=== PATIENT | male | born 1980 | race Caucasian/White ===

== ENCOUNTER 2019-12-01 02:05 | Inpatient (IN) | payer OTHER ==
[2019-12-01 02:20] LABS: Glucose,Whole Blood 260 mg/dL (75-99)
[2019-12-01] MEDS ORDERED: THIAMINE 100 MG/ML 2 ML VIAL IVP STA (02:29)
[2019-12-01 02:53] LABS: Basophils # (A) 0.1 k/uL (0-0.2); Basophils % (A) 1 %; Eosinophils # (A) 0.1 k/uL (0-0.7); Eosinophils % (A) 1 %; HCT 49.7 % (39.0-53.0); HGB 16.2 gm/dL (13.0-17.5); Lymphocytes # (A) 3.8 k/uL (1.0-4.8); Lymphocytes % (A) 29 %; MCHC 32.6 g/dL (31.0-37.0); Monocytes # (A) 0.7 k/uL (0-1.0); Monocytes % (A) 5 %; Neutrophils % (A) 62 %; Platelet Count 261 k/uL (150-450); RDW 11.8 % (11.5-15.5); WBC 12.8 k/uL (3.8-10.6)
[2019-12-01 02:57] LABS: Appearance,Urine Clear (Clear); Bilirubin,Urine Negative (Negative); Blood,Urine Negative (Negative); Color,Urine Colorless; Glucose,Urine (UA) Negative (Negative); Ketones,Urine Negative (Negative); Leukocyte Esterase,Urine Negative (Negative); Nitrite,Urine Negative (Negative); Protein,Urine Negative (Negative); Specific Gravity,Urine 1.005 (1.001-1.035); Urobilinogen,Urine <2.0 mg/dL (<2.0)
[2019-12-01 03:02] LABS: INR 0.9 (<1.2); Partial Thromboplastin Time 23.9 sec (22.0-30.0); Prothrombin Time 9.7 sec (9.0-12.0)
[2019-12-01 03:05] LABS: ALT 28 U/L (4-49); AST 36 U/L (17-59); African American GFR (CKD) >90 (>60 ml/min/1.73 sqM); Albumin 4.7 g/dL (3.5-5.0); Alkaline Phosphatase 97 U/L (38-126); Anion Gap 19 mmol/L; Blood Urea Nitrogen 10 mg/dL (9-20); Calcium 9.2 mg/dL (8.4-10.2); Carbon Dioxide 20 mmol/L (22-30); Chloride 103 mmol/L (98-107); Glucose 284 mg/dL (74-99); Non-African American GFR(CKD) >90 (>60 ml/min/1.73 sqM); Potassium 3.1 mmol/L (3.5-5.1); Sodium 142 mmol/L (137-145); Total Bilirubin 0.7 mg/dL (0.2-1.3); Total Protein 7.3 g/dL (6.3-8.2)
[2019-12-01 03:10] LABS: Amphetamine Screen,Urine Not Detected (NotDetected); Barbiturate Screen,Urine Not Detected (NotDetected); Benzodiazepines Screen,Urine Not Detected (NotDetected); Cocaine Screen,Urine Not Detected (NotDetected); Methadone Screen, Urine Not Detected (NotDetected); Opiate Screen,Urine Not Detected (NotDetected); Oxycodone Screen, Urine Not Detected (NotDetected); Phencyclidine Screen,Urine Not Detected (NotDetected); Tricyclic Antidepressant,Urine Not Detected (NotDetected); Urn Cannabinoid Scrn Not Detected (NotDetected)
[2019-12-01 03:15] LABS: Alcohol 413 mg/dL
--- NOTE | 2019-12-01 03:16 | ED ---
General Adult HPI - General Chief complaint: Alcohol Stated complaint: ETOH Time Seen by Provider: 12/01/19 02:16 Source: EMS Mode of arrival: EMS Limitations: altered mental status - History of Present Illness Initial comments: This patient is a 38-year-old man who is brought by his mother to be evaluated for altered mental state. The patient reportedly is a heavy drinker, and has had similar presentation before. The patient's mother states that she had gone down to a boat for the motorbike celebrations. She had seen him caring pint of hard liquor. She suspects she drank more than that, and she received a call tonight that friends were not able to arouse him. She states that she went there and they helped to load them into the vehicle and she brought him directly here. No one observed any trauma. The patient is not able to give any history due to altered mental status. -: minutes(s) Associated Symptoms: nausea/vomiting Treatments Prior to Arrival: none - Related Data Allergies Allergy/AdvReac Type Severity Reaction Status Date / Time Unable to Assess Allergy Verified 12/01/19 02:19 Review of Systems ROS Statement: Those systems with pertinent positive or pertinent negative responses have been documented in the HPI. ROS Other: All systems not noted in ROS Statement are negative. Limitations: ROS unobtainable due to patients medical condition Past Medical History Additional Past Medical History / Comment(s): etoh History of Any Multi-Drug Resistant Organisms: None Reported Past Surgical History: No Surgical Hx Reported Past Psychological History: No Psychological Hx Reported Smoking Status: Current every day smoker Past Alcohol Use History: Daily Past Drug Use History: None Reported General Exam Limitations: no limitations General appearance: appears intoxicated Head exam: Present: atraumatic, normocephalic, normal inspection Eye exam: Present: normal appearance, PERRL. Absent: scleral icterus, conjunctival injection Neck exam: Present: normal inspection, full ROM. Absent: tenderness Respiratory exam: Present: normal lung sounds bilaterally. Absent: respiratory distress, wheezes, rales, rhonchi, stridor Cardiovascular Exam: Present: normal rhythm, tachycardia, normal heart sounds. Absent: systolic murmur, diastolic murmur, rubs, gallop GI/Abdominal exam: Present: soft. Absent: distended, tenderness, guarding, rebound, rigid, mass Extremities exam: Present: normal inspection, normal capillary refill. Absent: pedal edema, calf tenderness Back exam: Present: normal inspection Neurological exam: Present: altered, reflexes normal, other (Patient is GCS=9. (E=2, V=2, M=5)) Skin exam: Present: warm, dry, intact, normal color. Absent: rash Course Vital Signs 12/01/19 12/01/19 12/01/19 02:14 03:25 04:55 Temperature 97.4 F L Pulse Rate 104 H 109 H 101 H Respiratory 15 18 18 Rate Blood Pressure 139/88 124/74 122/75 O2 Sat by Pulse 98 95 Oximetry 12/01/19 12/01/19 05:00 06:29 Temperature 97.7 F Pulse Rate 100 102 H Respiratory 16 18 Rate Blood Pressure 127/79 145/78 O2 Sat by Pulse 98 100 Oximetry EKG Findings - EKG Results: EKG: interpreted by VILLA, sinus rhythm, normal axis, normal QRS EKG shows: tachycardia (Rate 105 bpm) - Blocks, [place], Hypertrophy, ST Abn: Repolarization changes or abnormalities: nonspecific abnormality, ST segment, and/or T wave Medical Decision Making - Lab Data Result diagrams: 12/01/19 02:31 12/01/19 02:31 Lab Results 12/01/19 12/01/19 12/01/19 Range/Units 02:18 02:31 02:31 WBC 12.8 H (3.8-10.6) k/uL RBC 5.40 (4.30-5.90) m/uL Hgb 16.2 (13.0-17.5) gm/dL Hct 49.7 (39.0-53.0) % MCV 92.0 (80.0-100.0) fL MCH 30.0 (25.0-35.0) pg MCHC 32.6 (31.0-37.0) g/dL RDW 11.8 (11.5-15.5) % Plt Count 261 (150-450) k/uL Neutrophils % 62 % Lymphocytes % 29 % Monocytes % 5 % Eosinophils % 1 % Basophils % 1 % Neutrophils # 8.0 H (1.3-7.7) k/uL Lymphocytes # 3.8 (1.0-4.8) k/uL Monocytes # 0.7 (0-1.0) k/uL Eosinophils # 0.1 (0-0.7) k/uL Basophils # 0.1 (0-0.2) k/uL PT 9.7 (9.0-12.0) sec INR 0.9 (<1.2) APTT 23.9 (22.0-30.0) sec Sodium (137-145) mmol/L Potassium (3.5-5.1) mmol/L Chloride (98-107) mmol/L Carbon Dioxide (22-30) mmol/L Anion Gap mmol/L BUN (9-20) mg/dL Creatinine (0.66-1.25) mg/dL Est GFR (CKD-EPI)AfAm (>60 ml/min/1.73 sqM) Est GFR (CKD-EPI)NonAf (>60 ml/min/1.73 sqM) Glucose (74-99) mg/dL POC Glucose (mg/dL) 260 H (75-99) mg/dL POC Glu Sap Functional Analyst ID [place] Calcium (8.4-10.2) mg/dL Total Bilirubin (0.2-1.3) mg/dL AST (17-59) U/L ALT (4-49) U/L Alkaline Phosphatase (38-126) U/L Troponin I (0.000-0.034) ng/mL Total Protein (6.3-8.2) g/dL Albumin (3.5-5.0) g/dL Urine Color Urine Appearance (Clear) Urine pH (5.0-8.0) Ur Specific [place] (1.001-1.035) Urine Protein (Negative) Urine Glucose (UA) (Negative) Urine Ketones (Negative) Urine Blood (Negative) Urine Nitrite (Negative) Urine Bilirubin (Negative) Urine Urobilinogen (<2.0) mg/dL Ur Leukocyte Esterase (Negative) Urine Opiates Screen (NotDetected) Ur Oxycodone Screen (NotDetected) Urine Methadone Screen (NotDetected) Ur Propoxyphene Screen (NotDetected) Ur Barbiturates Screen (NotDetected) U Tricyclic Antidepress (NotDetected) Ur Phencyclidine Scrn (NotDetected) Ur Amphetamines Screen (NotDetected) U Methamphetamines Scrn (NotDetected) U Benzodiazepines Scrn (NotDetected) Urine Cocaine Screen (NotDetected) U Marijuana (THC) Screen (NotDetected) Serum Alcohol mg/dL 12/01/19 12/01/19 12/01/19 Range/Units 02:31 02:31 02:31 WBC (3.8-10.6) k/uL RBC (4.30-5.90) m/uL Hgb (13.0-17.5) gm/dL Hct (39.0-53.0) % MCV (80.0-100.0) fL MCH (25.0-35.0) pg MCHC (31.0-37.0) g/dL RDW (11.5-15.5) % Plt Count (150-450) k/uL Neutrophils % % Lymphocytes % % Monocytes % % Eosinophils % % Basophils % % Neutrophils # (1.3-7.7) k/uL Lymphocytes # (1.0-4.8) k/uL Monocytes # (0-1.0) k/uL Eosinophils # (0-0.7) k/uL Basophils # (0-0.2) k/uL PT (9.0-12.0) sec INR (<1.2) APTT (22.0-30.0) sec Sodium 142 (137-145) mmol/L Potassium 3.1 L (3.5-5.1) mmol/L Chloride 103 (98-107) mmol/L Carbon Dioxide 20 L (22-30) mmol/L Anion Gap 19 mmol/L BUN 10 (9-20) mg/dL Creatinine 0.56 L (0.66-1.25) mg/dL Est GFR (CKD-EPI)AfAm >90 (>60 ml/min/1.73 sqM) Est GFR (CKD-EPI)NonAf >90 (>60 ml/min/1.73 sqM) Glucose 284 H (74-99) mg/dL POC Glucose (mg/dL) (75-99) mg/dL POC Glu Sap Functional Analyst ID Calcium 9.2 (8.4-10.2) mg/dL Total Bilirubin 0.7 (0.2-1.3) mg/dL AST 36 (17-59) U/L ALT 28 (4-49) U/L Alkaline Phosphatase 97 (38-126) U/L Troponin I <0.012 (0.000-0.034) ng/mL Total Protein 7.3 (6.3-8.2) g/dL Albumin 4.7 (3.5-5.0) g/dL Urine Color Colorless Urine Appearance Clear (Clear) Urine pH 6.0 (5.0-8.0) Ur Specific [place] 1.005 (1.001-1.035) Urine Protein Negative (Negative) Urine Glucose (UA) Negative (Negative) Urine Ketones Negative (Negative) Urine Blood Negative (Negative) Urine Nitrite Negative (Negative) Urine Bilirubin Negative (Negative) Urine Urobilinogen <2.0 (<2.0) mg/dL Ur Leukocyte Esterase Negative (Negative) Urine Opiates Screen Not Detected (NotDetected) Ur Oxycodone Screen Not Detected (NotDetected) Urine Methadone Screen Not Detected (NotDetected) Ur Propoxyphene Screen Not Detected (NotDetected) Ur Barbiturates Screen Not Detected (NotDetected) U Tricyclic Antidepress Not Detected (NotDetected) Ur Phencyclidine Scrn Not Detected (NotDetected) Ur Amphetamines Screen Not Detected (NotDetected) U Methamphetamines Scrn Not Detected (NotDetected) U Benzodiazepines Scrn Not Detected (NotDetected) Urine Cocaine Screen Not Detected (NotDetected) U Marijuana (THC) Screen Not Detected (NotDetected) Serum Alcohol 413 H* mg/dL Disposition Clinical Impression: Alcoholic intoxication, Alcohol withdrawal syndrome Disposition: ADMITTED IP TO THIS [facility] Condition: Fair Is patient prescribed a controlled substance at d/c from ED?: No Referrals: None,Stated [Primary Care Provider] - 1-2 days
--- NOTE | 2019-12-01 03:18 | XR ---
EXAMINATION TYPE: XR chest 1V portable DATE OF EXAM: 12/01/2019 COMPARISON: NONE HISTORY: Altered mental status. TECHNIQUE: FINDINGS: There is no heart failure nor confluent pneumonic infiltrate. Costophrenic angles are clear . Heart size is normal. There are chest leads. Bony thorax is intact. IMPRESSION: No active cardiopulmonary disease. Normal heart.
--- NOTE | 2019-12-01 03:18 | CT ---
EXAMINATION TYPE: CT brain wo con DATE OF EXAM: 12/01/2019 COMPARISON: None HISTORY: AMS CT DLP: 1205.40 mGycm Automated exposure control for dose reduction was used. Ventricles and sulci appear normal. There is no mass effect nor midline shift. There is no sign of in tracranial hemorrhage. The calvarium is intact. There is no evidence of cerebral edema. IMPRESSION: Negative unenhanced head CT scan.
[2019-12-01] MEDS ORDERED: NALOXONE 0.4 MG/ML 1 ML VIAL IV PRN (07:22)
[2019-12-01] MEDS ORDERED: LORazepam 2 MG/ML INJ IV PRN ×3 (07:24)
[2019-12-01 08:08] VITALS: RESP 18
[2019-12-01] MEDS ORDERED: SODIUM CHLORIDE 0.9% 1,000 ML IV SCH (09:00)
[2019-12-01] MEDS ORDERED: FOLIC ACID 1 MG TAB PO SCH (09:00)
--- NOTE | 2019-12-01 09:01 | P.HPIM ---
History of Present Illness H&P Date: 12/01/19 The patient is a 38-year-old male with a PMH of alcohol abuse and bipolar disorder who was brought into the ED by his mother for alcohol intoxication and decreased level of consciousness. The history provided by the mother at the bedside since the patient is intoxicated and lethargic. She notes that the patient has a long-standing history of EtOH abuse and normally drinks up to a pint of hard liquor a day along with multiple beers. She notes however that yesterday they were out with friends and he initially had his 1 pint and then returned to the bar a few hours later and had an additional 2 pints of whiskey and rum. The patient subsequently became very intoxicated and was carried into his mother's car by some friends. En-route to her house, she felt that he was minimally responsive at which time she brought him into the emergency room. She reports that he often "passes out" after a night of drinking, though doesn't usually drink this much. The patient was arousable and answering basic questions. He reported that he did drink excessively last night though denied any active complaints. Denied any pain, shortness of breath, fever, chills, or cough. Denied weakness or numbness anywhere. In the emergency room, CT head was unremarkable with chest x-ray also unremarkable. An EKG as reviewed by me revealed sinus tachycardia at 105 bpm with Q waves inferiorly and T-wave inv ersion in lead III. laboratory evaluation revealed an alcohol level of 413, WBC count of 12.8, hemoglobin 16.2, platelets 261, sodium 142, potassium 3.1, chloride 103, CO2 20, creatinine 0.56, glucose 284, troponin less than 0.012. The patient is being admitted to the medicine service for alcohol intoxication. Review of Systems Review of systems was limited due to mental status. Patient also refused to answer several questions ROS unobtainable: due to mental status Past Medical History Additional Past Medical History / Comment(s): etoh History of Any Multi-Drug Resistant Organisms: None Reported Past Surgical History: No Surgical Hx Reported Past Psychological History: No Psychological Hx Reported Smoking Status: Current every day smoker Past Alcohol Use History: Daily Past Drug Use History: None Reported Medications and Allergies Allergies Allergy/AdvReac Type Severity Reaction Status Date / Time Unable to Assess Allergy Verified 12/01/19 02:19 Physical Exam Vitals: Vital Signs Temp Pulse Resp BP Pulse Ox 12/01/19 08:07 98.1 F 88 18 136/78 97 12/01/19 07:33 98.0 F 104 H 16 145/97 96 12/01/19 06:29 97.7 F 102 H 18 145/78 100 12/01/19 05:00 100 16 127/79 98 12/01/19 04:55 101 H 18 122/75 12/01/19 03:25 109 H 18 124/74 95 12/01/19 02:14 97.4 F L 104 H 15 139/88 98 Intake and Output 11/30/19 12/01/19 12/01/19 22:59 06:59 14:59 Other: Weight 99.79 kg General: non toxic, no distress, appears at stated age, overweight Derm: no unusual rashes/lesions no unusual ecchymoses, warm, dry Head: atraumatic, normocephalic, symmetric Eyes: EOMI, no lid lag, anicteric sclera, pupils equal round reactive to light ENT: Nose and ears atraumatic, no thrush, no pharyngeal erythema Neck: No thyromegaly, no cervical lymphadenopathy, trachea midline, supple Mouth: no lip lesion, mucus membranes dry Cardiovascular: S1S2 reg, no murmur, positive posterior tibial pulse bilateral, no edema, capillary refill less than 2 seconds Lungs: CTA bilateral, no rhonchi, no rales , no accessory muscle use Abdominal: soft, nontender to palpation, no guarding, no appreciable organomegaly, normal bowel sounds Ext: no gross muscle atrophy, moving all extremities, no focal deficits noted Neuro: CN II-XI grossly intact, light touch intact all 4 extremities, finger to nose within normal limits Psych: Lethargic, oriented to person, is aware he is in the hospital, and able to state the year Results CBC & Chem 7: 12/01/19 02:31 12/01/19 02:31 Labs: Abnormal Lab Results - Last 24 Hours (Table) 12/01/19 12/01/19 12/01/19 Range/Units 02:18 02:31 02:31 WBC 12.8 H (3.8-10.6) k/uL Neutrophils # 8.0 H (1.3-7.7) k/uL Potassium 3.1 L (3.5-5.1) mmol/L Carbon Dioxide 20 L (22-30) mmol/L Creatinine 0.56 L (0.66-1.25) mg/dL Glucose 284 H (74-99) mg/dL POC Glucose (mg/dL) 260 H (75-99) mg/dL Serum Alcohol 413 H* mg/dL Assessment and Plan Plan: Alcohol intoxication -WA protocol -Fall, aspiration, seizure precautions -Monitor electrolytes and replace as needed -IV fluids -poultry farmworker consult -Advise on importance of cessation -Thiamine and folic acid multivitamin -Check magnesium level Hypokalemia -Replace and monitor Leukocytosis -No signs of active infection at this time -Likely secondary to acute stressor Hyperglycemia -Check A1c DVT prophylaxis -Heparin subq The patient is admitted with an anticipated less than 2 midnight stay for evaluation of EtOH intoxication CODE STATUS: Full Code Discussed with: Patient, Mother Anticipated discharge date: 1-[address]: Home A total of 40 minutes was spent on the care of this complex patient more than 50% of the time was spent in counseling and care coordination.
[2019-12-01] MEDS ORDERED: POTASSIUM CHLORIDE ER 20 MEQ TAB.ER PO SCH (10:00)
[2019-12-01 13:10] VITALS: BP 109/71; PULSE 91; TEMP 97.5
[2019-12-01] MEDS ORDERED: HEPARIN SODIUM,PORCINE 5,000 UNIT/ML 1 ML VIAL SQ SCH (16:00)
--- NOTE | 2019-12-01 16:04 | P.DS ---
Providers Date of admission: 12/01/19 07:22 Expected date of discharge: 12/01/19 Attending physician: Iza Crews MD Primary care physician: Stated None Hospital Course: The patient is a 38-year-old male with a PMH of alcohol abuse and bipolar disorder who was brought into the ED by his mother for alcohol intoxication and decreased level of consciousness. The history provided by the mother at the bedside since the patient is intoxicated and lethargic. She notes that the patient has a long-standing history of EtOH abuse and normally drinks up to a pint of hard liquor a day along with multiple beers. She notes however that yesterday they were out with friends and he initially had his 1 pint and then returned to the bar a few hours later and had an additional 2 pints of whiskey and rum. The patient subsequently became very intoxicated and was carried into his mother's car by some friends. En-route to her house, she felt that he was minimally responsive at which time she brought him into the emergency room. She reports that he often "passes out" after a night of drinking, though doesn't usually drink this much. The patient was arousable and answering basic questions. He reported that he did drink excessively last night though denied any active complaints. Denied any pain, shortness of breath, fever, chills, or cough. Denied weakness or numbness anywhere. In the emergency room, CT head was unremarkable with chest x-ray also unremarkable. An EKG as reviewed by me revealed sinus tachycardia at 105 bpm with Q waves inferiorly and T-wave inversion in lead III. laboratory evaluation revealed an alcohol level of 413, WBC count of 12.8, hemoglobin 16.2, platelets 261, sodium 142, potassium 3.1, chloride 103, CO2 20, creatinine 0.56, glucose 284, troponin less than 0.012. The patient was admitted to the medical service for further management of acute alcohol intoxication. A few hours following admission, the patient became less intoxicated and more awake and alert. He subsequently requested to be disch arged home. The patient was seen and evaluated at the bedside. He was counseled in great detail regarding the need to abstain from heavy alcohol use. He was also counseled on his newly diagnosed type II DM and the importance of medication compliance and further avoidance of alcohol abuse. The patient was started on metformin 500 mg twice a day. The patient was also provided materials regarding his diagnosis and the patient's contact information will be given to the diabetic nurse educator so that they may follow-up with him after discharge. The patient was also given information for a PCP since he didn't have one currently. The patient reported feeling well and denied any active complaints. Physical Examination General: Non-toxic, in no acute distress, appears stated age, normal weight HEENT: NC/AT, anicteric sclerae, moist conjunctiva, no lid-lag, PERRLA Cardiovascular: S1/S2 wnl, no murmurs, rubs, or gallops Lungs: Clear to auscultation, normal respiratory effort, no accessory muscle use Abdominal: Soft, non-tender, non-distended, no guarding, rebound, or rigidity Skin: Warm, dry Extremities: No edema or contractures Psychiatric: Alert and oriented to person, place and time, appropriate affect Neuro: CN II-XII grossly intact, Strength 5/5 in all 4 extremities, Speech intact, Sensation to light touch grossly intact throughout, gait normal, no ataxia noted, no outstretched hand tremor, no tongue fasciculations Discharge diagnosis: Alcohol intoxication; bipolar disorder; newly diagnosed type II DM A total of 40 minutes of time were spent preparing this complex discharge summary. Patient Condition at Discharge: Stable Plan - Discharge Summary New Discharge Prescriptions: New Folic Acid 1 mg PO DAILY #30 tab metFORMIN HCL [Glucophage] 500 mg PO BID #30 tab Thiamine [Vitamin B-1] 100 mg PO BID-W/MEALS #30 tab Discharge Medication List Folic Acid 1 mg PO DAILY #30 tab 12/01/19 [Rx] Thiamine [Vitamin B-1] 100 mg PO BID-W/MEALS #30 tab 12/01/19 [Rx] metFORMIN HCL [Glucophage] 500 mg PO BID #30 tab 12/01/19 [Rx] Follow up Appointment(s)/Referral(s): Mitch Ho DO [Doctor of Osteopathic Medicine] - 1 Week (call tuesday to make appointment) Patient Instructions/Handouts: Thiamine (By mouth), Folic Acid (By mouth), Metformin (By mouth), Diabetes Insipidus (DC), Abuse of Alcohol (DC) Discharge Disposition: HOME SELF-CARE
[2019-12-01] MEDS ORDERED: THIAMINE 100 MG TAB PO SCH (17:30)
[2019-12-01 18:52] LABS: Hemoglobin A1C 5.8 % (4.0-6.0)
== END 2019-12-01 15:19 | disposition home or self-care (01) | DRG 897 ==
LOC: EC 02:05 → 5NMEDONC 07:22
PROVIDERS: ADMIT Internal Medicine; ATTEND Internal Medicine
DX: F10.220 Alcohol dependence with intoxication, uncomplicated (principal); Z11.59 Encounter for screening for other viral diseases; F31.9 Bipolar disorder, unspecified; F17.200 Nicotine dependence, unspecified, uncomplicated; R00.0 Tachycardia, unspecified; E87.6 Hypokalemia; D72.829 Elevated white blood cell count, unspecified; E11.65 Type 2 diabetes mellitus with hyperglycemia; Y90.8 Blood alcohol level of 240 mg/100 ml or more
CPT/HCPCS: 36415; 51701; 70450; 71045; 80053; 80306; 80320; 81003; 83036; 83735; 84484; 85025; 85610; 85730; 93005; 96374; 99285

== ENCOUNTER 2020-05-24 14:45 | Observation (INO) | payer OTHER ==
--- NOTE | 2020-05-24 15:15 | ED ---
General Adult HPI - General Chief complaint: Psychiatric Symptoms Stated complaint: Mental Health/ETOH Time Seen by Provider: 05/24/20 14:59 Source: patient, family Mode of arrival: ambulatory Limitations: no limitations - History of Present Illness Initial comments: Dictation was produced using [employer] dictation software. please excuse any grammatical, word or spelling errors. This patient was cared for during a federal and state declared state of emergency secondary to Covid 19 Chief Complaint: 39-year-old male presents with suicidal ideation History of Present Illness: 39-year-old male he was raking heavily today. Patient states that his girl friend today. He started drinking heavily. His and his other old girlfriend were concerned and told to come get some help. Patient has no specific plan. Denies any homicidal ideation. No visual auditory hallucinations. The ROS documented in this emergency department record has been reviewed and confirmed by me. Those systems with pertinent positive or negative responses have been documented in the HPI. All other systems are other negative and/or noncontributory. PHYSICAL EXAM: General Impression: Alert and oriented x3, not in acute distress HEENT: Normocephalic atraumatic, extra-ocular movements intact, pupils equal and reactive to light bilaterally, mucous membranes moist. Cardiovascular: Heart regular rate and rhythm Chest: Able to complete full sentences, no retractions, no tachypnea Abdomen: abdomen soft, non-tender, non-distended, no organomegaly Musculoskeletal: Pulses present and equal in all extremities, no peripheral edema Motor: no focal deficits noted Neurological: CN II-XII grossly intact, no focal motor or sensory deficits noted Skin: Intact with no visualized rashes Psych: Normal affect and mood ED course: 39-year-old male presents today with intermittent intoxication and suicidal ideation. vital signs upon arrival are within except limits. Laboratory evaluation obtained. CBC unremarkable. Metabolic panel shows sodium 146. No acidosis. Magnesium 2.6. Serum medical history 29. Coronal viruses is not detected. Patient be admitted for EtOH intoxication. Psychiatry be consulted. Patient be admitted to [facility]. - Related Data Previous Rx's Medication Instructions Recorded Folic Acid 1 mg PO DAILY #30 tab 12/01/19 Thiamine [Vitamin B-1] 100 mg PO BID-W/MEALS #30 tab 12/01/19 metFORMIN HCL [Glucophage] 500 mg PO BID #30 tab 12/01/19 Allergies Allergy/AdvReac Type Severity Reaction Status Date / Time No Known Allergies Allergy Verified 05/24/20 14:57 Review of Systems ROS Statement: Those systems with pertinent positive or pertinent negative responses have been documented in the HPI. ROS Other: All systems not noted in ROS Statement are negative. Past Medical History Past Medical History: Diabetes Mellitus, Hypertension Additional Past Medical History / Comment(s): etoh History of Any Multi-Drug Resistant Organisms: None Reported Past Surgical History: No Surgical Hx Reported Past Psychological History: Bipolar, Depression Smoking Status: Never smoker Past Alcohol Use History: Abuse, Daily, Heavy Past Drug Use History: None Reported General Exam Limitations: no limitations Course Vital Signs 05/24/20 05/24/20 14:51 15:39 Temperature 98.1 F 98.1 F Pulse Rate 100 88 Respiratory 18 16 Rate Blood Pressure 143/98 138/88 O2 Sat by Pulse 98 98 Oximetry Medical Decision Making - Lab Data Result diagrams: 05/24/20 15:24 05/24/20 15:24 Lab Results 05/24/20 05/24/20 05/24/20 Range/Units 15:24 15:24 15:24 WBC 8.1 (3.8-10.6) k/uL RBC 5.86 (4.30-5.90) m/uL Hgb 17.5 (13.0-17.5) gm/dL Hct 53.2 H (39.0-53.0) % MCV 90.9 (80.0-100.0) fL MCH 29.9 (25.0-35.0) pg MCHC 32.9 (31.0-37.0) g/dL RDW 12.3 (11.5-15.5) % Plt Count 332 (150-450) k/uL MPV 6.3 Neutrophils % 51 % Lymphocytes % 42 % Monocytes % 4 % Eosinophils % 1 % Basophils % 1 % Neutrophils # 4.1 (1.3-7.7) k/uL Lymphocytes # 3.4 (1.0-4.8) k/uL Monocytes # 0.3 (0-1.0) k/uL Eosinophils # 0.1 (0-0.7) k/uL Basophils # 0.1 (0-0.2) k/uL Sodium 146 H (137-145) mmol/L Potassium 4.4 (3.5-5.1) mmol/L Chloride 106 (98-107) mmol/L Carbon Dioxide 29 (22-30) mmol/L Anion Gap 11 mmol/L BUN 10 (9-20) mg/dL Creatinine 0.80 (0.66-1.25) mg/dL Est GFR (CKD-EPI)AfAm >90 (>60 ml/min/1.73 sqM) Est GFR (CKD-EPI)NonAf >90 (>60 ml/min/1.73 sqM) Glucose 152 H (74-99) mg/dL Calcium 9.4 (8.4-10.2) mg/dL Magnesium 2.6 H (1.6-2.3) mg/dL Urine Opiates Screen Not Detected (NotDetected) Ur Oxycodone Screen Not Detected (NotDetected) Urine Methadone Screen Not Detected (NotDetected) Ur Propoxyphene Screen Not Detected (NotDetected) Ur Barbiturates Screen Not Detected (NotDetected) U Tricyclic Antidepress Not Detected (NotDetected) Ur Phencyclidine Scrn Not Detected (NotDetected) Ur Amphetamines Screen Not Detected (NotDetected) U Methamphetamines Scrn Not Detected (NotDetected) U Benzodiazepines Scrn Not Detected (NotDetected) Urine Cocaine Screen Not Detected (NotDetected) U Marijuana (THC) Screen Not Detected (NotDetected) Serum Alcohol 329 H* mg/dL Coronavirus (PCR) (Not Detectd) 05/24/20 Range/Units 15:24 WBC (3.8-10.6) k/uL RBC (4.30-5.90) m/uL Hgb (13.0-17.5) gm/dL Hct (39.0-53.0) % MCV (80.0-100.0) fL MCH (25.0-35.0) pg MCHC (31.0-37.0) g/dL RDW (11.5-15.5) % Plt Count (150-450) k/uL MPV Neutrophils % % Lymphocytes % % Monocytes % % Eosinophils % % Basophils % % Neutrophils # (1.3-7.7) k/uL Lymphocytes # (1.0-4.8) k/uL Monocytes # (0-1.0) k/uL Eosinophils # (0-0.7) k/uL Basophils # (0-0.2) k/uL Sodium (137-145) mmol/L Potassium (3.5-5.1) mmol/L Chloride (98-107) mmol/L Carbon Dioxide (22-30) mmol/L Anion Gap mmol/L BUN (9-20) mg/dL Creatinine (0.66-1.25) mg/dL Est GFR (CKD-EPI)AfAm (>60 ml/min/1.73 sqM) Est GFR (CKD-EPI)NonAf (>60 ml/min/1.73 sqM) Glucose (74-99) mg/dL Calcium (8.4-10.2) mg/dL Magnesium (1.6-2.3) mg/dL Urine Opiates Screen (NotDetected) Ur Oxycodone Screen (NotDetected) Urine Methadone Screen (NotDetected) Ur Propoxyphene Screen (NotDetected) Ur Barbiturates Screen (NotDetected) U Tricyclic Antidepress (NotDetected) Ur Phencyclidine Scrn (NotDetected) Ur Amphetamines Screen (NotDetected) U Methamphetamines Scrn (NotDetected) U Benzodiazepines Scrn (NotDetected) Urine Cocaine Screen (NotDetected) U Marijuana (THC) Screen (NotDetected) Serum Alcohol mg/dL Coronavirus (PCR) Not Detected (Not Detectd) Disposition Clinical Impression: Alcohol intoxication, Suicidal ideation Disposition: ADMITTED IP TO THIS HOSP Condition: Fair Referrals: None,Stated [Primary Care Provider] - 1-2 days Decision Time: 16:07
[2020-05-24 15:48] LABS: Amphetamine Screen,Urine Not Detected (NotDetected); Barbiturate Screen,Urine Not Detected (NotDetected); Benzodiazepines Screen,Urine Not Detected (NotDetected); Cocaine Screen,Urine Not Detected (NotDetected); Methadone Screen, Urine Not Detected (NotDetected); Opiate Screen,Urine Not Detected (NotDetected); Oxycodone Screen, Urine Not Detected (NotDetected); Phencyclidine Screen,Urine Not Detected (NotDetected); Tricyclic Antidepressant,Urine Not Detected (NotDetected); Urn Cannabinoid Scrn Not Detected (NotDetected)
[2020-05-24 15:49] LABS: Basophils # (A) 0.1 k/uL (0-0.2); Basophils % (A) 1 %; Eosinophils # (A) 0.1 k/uL (0-0.7); Eosinophils % (A) 1 %; HCT 53.2 % (39.0-53.0); HGB 17.5 gm/dL (13.0-17.5); Lymphocytes # (A) 3.4 k/uL (1.0-4.8); Lymphocytes % (A) 42 %; MCH 29.9 pg (25.0-35.0); MCHC 32.9 g/dL (31.0-37.0); MCV 90.9 fL (80.0-100.0); Mean Platelet Volume 6.3; Monocytes # (A) 0.3 k/uL (0-1.0); Monocytes % (A) 4 %; Neutrophils # (A) 4.1 k/uL (1.3-7.7); Neutrophils % (A) 51 %; Platelet Count 332 k/uL (150-450); RBC 5.86 m/uL (4.30-5.90); RDW 12.3 % (11.5-15.5); WBC 8.1 k/uL (3.8-10.6)
[2020-05-24 15:52] LABS: Potassium 4.4 mmol/L (3.5-5.1)
[2020-05-24 15:53] LABS: African American GFR (CKD) >90 (>60 ml/min/1.73 sqM); Anion Gap 11 mmol/L; Blood Urea Nitrogen 10 mg/dL (9-20); Calcium 9.4 mg/dL (8.4-10.2); Carbon Dioxide 29 mmol/L (22-30); Chloride 106 mmol/L (98-107); Glucose 152 mg/dL (74-99); Magnesium 2.6 mg/dL (1.6-2.3); Non-African American GFR(CKD) >90 (>60 ml/min/1.73 sqM); Sodium 146 mmol/L (137-145)
[2020-05-24 16:02] LABS: Alcohol 329 mg/dL
[2020-05-24] MEDS ORDERED: NALOXONE 0.4 MG/ML 1 ML VIAL IV PRN (16:05)
[2020-05-24] MEDS ORDERED: THIAMINE 100 MG/ML 2 ML VIAL IM STA (16:06)
[2020-05-24] MEDS ORDERED: LORazepam 2 MG/ML INJ IV PRN ×3 (16:06)
[2020-05-24] MEDS: SODIUM CHLORIDE 0.9% 1,000 ML IV SCH (16:12)
[2020-05-24] MEDS: THIAMINE 100 MG TAB PO SCH (16:22)
[2020-05-25] MEDS: SODIUM CHLORIDE 0.9% 1,000 ML IV SCH ×2 (00:48→09:34)
[2020-05-25 04:43] VITALS: RESP 16
[2020-05-25] MEDS: THIAMINE 100 MG TAB PO SCH (09:28)
[2020-05-25 10:27] VITALS: BP 176/96; PULSE 110; TEMP 98.2
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
--- NOTE | 2020-05-25 14:38 | HP ---
HISTORY AND PHYSICAL HISTORY AND PHYSICAL AND DISCHARGE SUMMARY: CHIEF COMPLAINT: Alcohol intoxication as well as suicidal ideation. HISTORY OF PRESENT ILLNESS: This 39-year-old gentleman with a past medical history of multiple medical problems including diabetes, hypertension, history of EtOH, history of bipolar depression, being followed by no primary physician in the outpatient setting, apparently was drinking heavily. The patient has multiple social history is going on one of his previous friends of an overdose recently. Patient has been stressed out because of that. The patient had noted to have some suicidal ideation, but however, Psychiatry evaluated the patient at length and cleared the patient for discharge at this time. Currently, there is no suicidal ideation according to him. There is no history of fever, rigors, chills. No headache, loss of consciousness, seizures at this time. PAST MEDICAL HISTORY: History of diabetes, hypertension, history EtOH, bipolar depression. MEDICATIONS: Medications prior to admission, vitamin B1, multivitamin. Medications reviewed. ALLERGIES: None. FAMILY HISTORY: No history of heart disease or strokes in the family. SOCIAL HISTORY: No history of smoking. History of alcohol. REVIEW OF SYSTEMS: ENT: No diminished vision or hearing. CARDIOVASCULAR: No angina or palpitations. RESPIRATORY: No cough or hemoptysis. GI: As mentioned earlier. : No dysuria. NERVOUS SYSTEM: No numbness or weakness. ALLERGY/IMMUNOLOGY: No asthma or hayfever. MUSCULOSKELETAL: As mentioned earlier. HEMATOLOGY: No history of anemia. ENDOCRINE: No history of diabetes or hypothyroidism. CONSTITUTIONAL: As mentioned earlier. DERMATOLOGY: Negative. RHEUMATOLOGY: Negative. PSYCHIATRY: As mentioned earlier. PHYSICAL EXAMINATION: GENERAL: Patient is alert and oriented times three. VITAL SIGNS: Pulse 110, blood pressure 170/96, respirations 16, temperature 98.2, pulse ox 97% on room air. HEENT: Conjunctivae normal. Oral mucosa moist. NECK: No jugular venous distention. No carotid bruits. No lymph node enlargement. RESPIRATORY: Breath sounds diminished at the bases. No rhonchi, no crackles. HEART: S1 and S2, muffled. ABDOMEN: Soft, no tenderness. No masses palpable. EXTREMITIES: No edema, no swelling. NERVOUS: Higher functions as mentioned earlier. Moves all four limbs. No focal motor or sensory deficits. LYMPHATICS: No lymph nodes palpable in the neck or axillae. SKIN: No rashes. JOINTS: No active deforming arthropathy. LABS: Sodium 146, glucose is 152, random alcohol 329. ASSESSMENT: 1. Acute alcohol intoxication, present on admission. 2. Hypernatremia with dehydration, present on admission. 3. Increased random blood sugar, possible diabetes mellitus type 2 history. 4. Hypertension. 5. History of bipolar depression. 6. History of EtOH abuse. 7. FULL CODE. RECOMMENDATION AND DISCUSSION: In this 39-year-old gentleman who presented with multiple complex medical issues, at this time the patient has improved significantly. Patient is extremely keen on going home. Psychiatry discharged the patient as well. The blood pressure is slightly elevated and fluctuating. I recommend to closely follow with primary physician in the outpatient setting. The sugar is also slightly elevated. Recommend repeat lab testing in the outpatient setting also. Psychiatric followup pulse also assisted. On exam, vitals are stable as mentioned earlier. Follow up with Dr. Riley in 1 week. Follow with Psych as recommended. MEDICATIONS: 1. Ativan 1 mg t.i.d. p.r.n. 2. No EtOH and to attend AA meetings. 3. Folic acid 1 mg daily. 4. Multivitamins one daily. 5. Thiamine 100 mg p.o. daily. Followup labs and monitoring with Dr. Riley's office. MMODL / IJN: [id number] /
== END 2020-05-25 13:47 | disposition home or self-care (01) ==
LOC: EC 14:45 → 6NMEDSUR 16:05
PROVIDERS: ADMIT Internal Medicine; ATTEND Internal Medicine
DX: F10.129 Alcohol abuse with intoxication, unspecified (principal); F10.139 Alcohol abuse with withdrawal, unspecified; R45.851 Suicidal ideations; E87.0 Hyperosmolality and hypernatremia; E11.65 Type 2 diabetes mellitus with hyperglycemia; I10 Essential (primary) hypertension; F31.9 Bipolar disorder, unspecified; K08.89 Other specified disorders of teeth and supporting structures; Z20.828 Contact with and (suspected) exposure to other viral communicable diseases; Y90.8 Blood alcohol level of 240 mg/100 ml or more
CPT/HCPCS: 82075; 96360; 96372; 99284; 36415; 80048; 83735; 85025; 80306; 80320; 87635; G0378 ×2; J3411

== ENCOUNTER 2021-03-14 16:27 | Emergency (ER) | payer OTHER ==
[2021-03-14 17:26] VITALS: BP 125/73; PULSE 103; RESP 20
[2021-03-14] MEDS ORDERED: MORPHINE SULFATE 4 MG/ML SYRINGE IM STA (18:27)
[2021-03-14] MEDS ORDERED: ACETAMINOPHEN TAB 325 MG TAB PO STA (18:27)
--- NOTE | 2021-03-14 19:00 | XR ---
EXAMINATION TYPE: XR ankle complete RT DATE OF EXAM: 03/14/2021 CLINICAL HISTORY: Right ankle pain and swelling TECHNIQUE: Frontal, lateral and oblique images of the right ankle are obtained. COMPARISON: None. FINDINGS: There is no acute fracture/dislocation evident in the right ankle. The ankle mortise appe ars within normal limits. Small plantar calcaneal and posterior calcaneal spurs. The overlying soft tissue appears unremarkable. IMPRESSION: There is no acute fracture or dislocation in the right ankle.
[2021-03-14 19:15] VITALS: TEMP 98.9
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
== END 2021-03-14 19:53 | disposition home or self-care (01) ==
LOC: EC 16:27
DX: S93.401A Sprain of unspecified ligament of right ankle, initial encounter (principal); I10 Essential (primary) hypertension; E11.9 Type 2 diabetes mellitus without complications; F31.9 Bipolar disorder, unspecified; X58.XXXA Exposure to other specified factors, initial encounter
CPT/HCPCS: 99283; 96372; 73610; J2270

== ENCOUNTER 2024-08-01 19:25 | Emergency (ER) | payer OTHER ==
--- NOTE | 2024-08-01 20:37 | ED ---
Abdominal Pain HPI - General Source: patient, RN notes reviewed Mode of arrival: ambulatory Limitations: no limitations <Jaylyn Guerrero - Last Filed: 08/01/24 20:35> <Danica Nelson - Last Filed: 08/05/24 14:31> - General Chief Complaint: Abdominal Pain Stated Complaint: stomach pain Time Seen by Provider: 08/01/24 20:35 - History of Present Illness Initial Comments: Quick [id number] male presenting for abdominal pain x 3 days. Reports a constant, generalized pain located diffusely throughout the abdomen. Denies vomiting, diarrhea, fevers, chest pain. He is a daily drinker, reporting approximately 1 pint of alcohol daily. Last drink was this morning at 8 AM. Reports history of hypertension and diabetes. Denies history of abdominal surgeries. (Jaylyn Guerrero) Patient is a 43-year-old gentleman past medical history alcoholism presenting today for abdominal pain x 3 days. Constant, feels like has been kicked in the abdomen predominantly in the epigastric and mid abdomen. Denies nausea, diarrhea, fevers, chest pain, shortness of breath, melena, hematochezia, dysuria, hematuria, pain in his testicles. Endorses nausea. Drinks 1 pint daily. no Prior abdominal surgery (Danica Nelson) - Related Data Home Medications Medication Instructions Recorded Confirmed No Known Home Medications 06/25/24 06/25/24 Allergies Allergy/AdvReac Type Severity Reaction Status Date / Time No Known Allergies Allergy Verified 08/01/24 19:46 Review of Systems ROS Other: All systems not noted in ROS Statement are negative. <GuerreroJaylyn - Last Filed: 08/01/24 20:35> ROS Other: All systems not noted in ROS Statement are negative. <Danica Nelson - Last Filed: 08/05/24 14:31> ROS Statement: Those systems with pertinent positive or pertinent negative responses have been documented in the HPI. Past Medical History Past Medical History: Diabetes Mellitus, Hypertension Additional Past Medical History / Comment(s): etoh daily wiskey drinker History of Any Multi-Drug Resistant Organisms: None Reported Past Surgical History: No Surgical Hx Reported Past Psychological History: Bipolar, Depression Smoking Status: Never smoker Past Alcohol Use History: Abuse, Daily, Heavy Past Drug Use History: Marijuana <Jaylyn Guerrero - Last Filed: 08/01/24 20:35> General Exam Limitations: no limitations <Jaylyn Guerrero - Last Filed: 08/01/24 20:35> <Danica Nelson - Last Filed: 08/05/24 14:31> - General Exam Comments Initial Comments: Visual Physical Exam Vital signs reviewed General: Well-appearing, nontoxic, no acute distress. Head: Normocephalic, atraumatic Eyes: PERRLA, EOMI ENT: Airway patent Chest: Nonlabored breathing Skin: No visual rash, normal skin tone Neuro: Alert and oriented 3 Musculoskeletal: No gross abnormalities (Jaylyn Guerrero) PE: CONSTITUTIONAL: No apparent distress, well appearing SKIN: Warm, dry, no jaundice, hives or petechiae EYES: Pupils are equally round, extraocular movements intact without nystagmus, clear conjunctiva, non-icteric sclera HENT: Normocephalic, atraumatic, moist mucus membranes, oropharynx clear without exudates NECK: , Full range of motion, normal appearance PULMONARY: Clear to auscultation without wheezes, rhonchi, or rales, normal excursion, no accessory muscle use and no stridor CARDIOVASCULAR: Regular rate, rhythm, normal S1 and S2. No appreciated murmurs, rubs or gallops. Strong radial pulses with intact distal perfusion. No lower e xtremity edema GASTROINTESTINAL: Soft, active bowel sounds throughout, mild tenderness palpation of the epigastrium, non-distended, no palpable masses, no rebound or guarding. No hepatosplenomegaly GENITOURINARY: MUSCULOSKELETAL: Extremities have no gross deformity, no edema, redness, or swelling. NEUROLOGIC:_a/o x 3, GCS 15, normal mentation and speech. Moves all extremities x 4 without motor or sensory deficit PSYCHIATRIC:_normal mood and affect, thought process is clear and linear (Danica Nelson) Course Vital Signs 08/01/24 08/01/24 08/02/24 19:42 23:23 00:26 Temperature 97.9 F Pulse Rate 81 100 97 Respiratory 20 Rate Blood Pressure 154/104 158/98 161/99 O2 Sat by Pulse 99 95 97 Oximetry 08/02/24 08/02/24 01:04 01:12 Temperature 98.0 F Pulse Rate 91 88 Respiratory 18 Rate Blood Pressure 146/87 155/97 O2 Sat by Pulse 96 97 Oximetry Medical Decision Making <Jaylyn Guerrero - Last Filed: 08/01/24 20:35> - Lab Data Result diagrams: 08/01/24 20:57 08/01/24 20:57 <Danica - Last Filed: 08/05/24 14:31> - Medical Decision Making I completed the quick note portion of this chart signed Jaylyn Guerrero PA-C ([facility],Jaylyn) Was pt. sent in by a medical professional or institution (, PA, STORE PRODUCT DEMONSTRATOR, urgent care, hospital, or [facility]...) When possible be specific @ -No Did you speak to anyone other than the patient for history (EMS, parent, family, police, friend...)? What history was obtained from this source @ -No Did you review nursing and triage notes (agree or disagree)? Why? @ -I reviewed nursing and triage notes Were old charts reviewed (outside hosp., previous admission, EMS record, old EKG, old radiological studies, urgent care reports/EKG's, [facility] records)? Report findings @ -Medical records reviewed Differential Diagnosis (chest pain, altered mental status, abdominal pain women, abdominal pain men, vaginal bleeding, weakness, fever, dyspnea, syncope, headache, dizziness, GI bleed, back pain, seizure, CVA, palpatations, mental health, musculoskeletal)? @ -Differential Abdominal Pain Men: Appendicitis, cholecystitis, diverticulosis, ischemic bowel, pancreatitis, hep atitis, UTI, gastroenteritis, AAA, incarcerated hernia, bowel obstruction, constipation, inflammatory bowel, hepatitis, peptic ulcer disease, splenic infarction, perforated viscus, testicular torsion, this is not meant to be an all-inclusive list EKG interpreted by me (3pts min.). @ -As above X-rays interpreted by me (1pt min.). @ -None done CT interpreted by me (1pt min.). @I personally reviewed CT abdomen pelvis, I see no evidence of free air, free fluid bowel obstruction or other acute process, I agree with radiologist interpretation U/S interpreted by me (1pt. min.). @ -None done What testing was considered but not performed or refused? (CT, X-rays, U/S, labs)? Why? @ -None What meds were considered but not given or refused? Why? @ -None Did you discuss the management of the patient with other professionals (professionals i.e. , PA, STORE PRODUCT DEMONSTRATOR, lab, RT, psych nurse, neonatal social worker, central office installer, teacher, [employer] plans staff officer, case management manager)? Give summary @ -No Was smoking cessation discussed for >3mins.? @ -No Was critical care preformed (if so, how long)? @ -No Were there social determinants of health that impacted care today? How? (Homelessness, low income, unemployed, alcoholism, drug addiction, transportation, low edu. Level, literacy, decrease access to med. care, [place] [facility], rehab)? @ -No Was there de-escalation of care discussed even if they declined (Discuss DNR or withdrawal of care, Hospice)? @ -No What co-morbidities impacted this encounter? (DM, HTN, Smoking, COPD, CAD, Cancer, CVA, ARF, Chemo, Hep., AIDS, mental health diagnosis, sleep apnea, morbid obesity)? @Alcoholism Was patient admitted / discharged? Hospital course, mention meds given and route, prescriptions, significant lab abnormalities, going to OR and other pertinent info. @ -Discharged-this is a pleasant 43-year-old gentleman past medical history of alcoholism presenting today for abdominal pain. Patient initially seen by triage provider due to ED at overflow capacity at this time. Vital signs on arrival within acceptable limits, mildly hypertensive, otherwise no fever, hypoxia or tachycardia. On my assessment patient is resting comfortably no acute distress. Exam significant for epigastric tenderness palpation.Reviewed labs ordered by triage provider, which show no leukocytosis, no leukopenia or neutrophilia, lipase 186, total bilirubin minimally elevated at 1.6, plasma lactic 2.4 kidney function within normal limits. Due to elevated lactic I suspect this is secondary to patient's alcohol use we will obtain CT abdomen pelvis. Pepcid, Toradol, Zofran and IV fluids ordered. Patient agreeable plan of care. CT abdomen pelvis without acute process. Patient is tolerating p.o. intake. He endorsed mild movement of symptoms even prior to medication administration. Of note patient's repeat lactic was drawn prior to any IV fluid administration. With a negative CT scan, otherwise reassuring labs, but alcohol of 77 on arrival I suspect this is secondary to volume depletion and patient's history of alcoholism. He will receive a fluid bolus prior to discharge. I discussed with patient and his mother I suspicions for acute gastritis versus peptic ulcer disease and we discussed patient beginning omeprazole nightly and following up with his doctor regarding the symptoms. Patient mother agreeable plan of care. In my medical judgment there is currently no evidence of an immediate life-t hreatening or surgical condition. Discharge is therefore indicated at this time. Discharge treatment instructions, follow up instructions, and appropriate emergency department return precautions were discussed with the patient and/or medical decision maker. Patient and/or medical decision maker expressed understanding of and agreed with the treatment plan, follow up instructions, and emergency department return precaution. All patient's and/or medical decision maker's questions were answered. The patient was advised that a small risk still exists that a serious condition could develop and was therefore instructed to return to the ED for any changes in symptoms, persistent symptoms, inability to obtain proper follow-up or for any further concerns. Patient received verbal and written instructions for this condition. Undiagnosed new problem with uncertain prognosis? @ -No Drug Therapy requiring intensive monitoring for toxicity (Heparin, Nitro, Insulin, Cardizem)? @ -No Were any procedures done? @ -No Diagnosis/symptom? @Acute gastritis Acute, or Chronic, or Acute on Chronic? @Acute Uncomplicated (without systemic symptoms) or Complicated (systemic symptoms)? Uncomplicated Side effects of treatment? @ -No Exacerbation, Progression, or Severe Exacerbation? @ -No Poses a threat to life or bodily function? How? (Chest pain, USA, MS, pneumonia, PE, COPD, DKA, ARF, appy, cholecystitis, CVA, Diverticulitis, Homicidal, Suicidal, threat to staff... and all critical care pts) @ -No (,Danica) - Lab Data Lab Results 08/01/24 08/01/24 08/01/24 Range/Units 20:57 20:57 20:57 WBC 7.0 (3.8-10.6) k/uL RBC 5.83 (4.30-5.90) m/uL Hgb 17.3 (13.0-17.5) gm/dL Hct 53.1 H (39.0-53.0) % MCV 91.1 (80.0-100.0) fL MCH 29.7 (25.0-35.0) pg MCHC 32.6 (31.0-37.0) g/dL RDW 12.9 (11.5-15.5) % Plt Count 263 (150-450) k/uL MPV 7.2 Neutrophils % 50 % Lymphocytes % 42 % Monocytes % 5 % Eosinophils % 0 % Basophils % 1 % Neutrophils # 3.5 (1.3-7.7) k/uL Lymphocytes # 3.0 (1.0-4.8) k/uL Monocytes # 0.3 (0-1.0) k/uL Eosinophils # 0.0 (0-0.7) k/uL Basophils # 0.1 (0-0.2) k/uL Sodium 140 (137-145) mmol/L Potassium 3.8 (3.5-5.1) mmol/L Chloride 101 (98-107) mmol/L Carbon Dioxide 24 (22-30) mmol/L Anion Gap 15 mmol/L BUN 6 L (9-20) mg/dL Creatinine 0.58 L (0.66-1.25) mg/dL Est GFR (CKD-EPI)AfAm >90 (>60 ml/min/1.73 sqM) Est GFR (CKD-EPI)NonAf >90 (>60 ml/min/1.73 sqM) Glucose 139 H (74-99) mg/dL Lactic Ac Sepsis Rflx Plasma Lactic Acid Lemuel 2.4 H* (0.7-2.0) mmol/L Calcium 9.2 (8.4-10.2) mg/dL Total Bilirubin 1.6 H (0.2-1.3) mg/dL AST 55 (17-59) U/L ALT 46 (4-49) U/L Alkaline Phosphatase 102 (38-126) U/L Total Protein 8.4 H (6.3-8.2) g/dL Albumin 5.1 H (3.5-5.0) g/dL Amylase 66 (30-110) U/L Lipase 186 (23-300) U/L Urine Color Urine Appearance (Clear) Urine pH (5.0-8.0) Ur Specific [place] (1.001-1.035) Urine Protein (Negative) Urine Glucose (UA) (Negative) Urine Ketones (Negative) Urine Blood (Negative) Urine Nitrite (Negative) Urine Bilirubin (Negative) Urine Urobilinogen (<2.0) mg/dL Ur Leukocyte Esterase (Negative) Serum Alcohol 77 mg/dL 08/01/24 08/01/24 08/01/24 Range/Units 21:03 21:31 23:38 WBC (3.8-10.6) k/uL RBC (4.30-5.90) m/uL Hgb (13.0-17.5) gm/dL Hct (39.0-53.0) % MCV (80.0-100.0) fL MCH (25.0-35.0) pg MCHC (31.0-37.0) g/dL RDW (11.5-15.5) % Plt Count (150-450) k/uL MPV Neutrophils % % Lymphocytes % % Monocytes % % Eosinophils % % Basophils % % Neutrophils # (1.3-7.7) k/uL Lymphocytes # (1.0-4.8) k/uL Monocytes # (0-1.0) k/uL Eosinophils # (0-0.7) k/uL Basophils # (0-0.2) k/uL Sodium (137-145) mmol/L Potassium (3.5-5.1) mmol/L Chloride (98-107) mmol/L Carbon Dioxide (22-30) mmol/L Anion Gap mmol/L BUN (9-20) mg/dL Creatinine (0.66-1.25) mg/dL Est GFR (CKD-EPI)AfAm (>60 ml/min/1.73 sqM) Est GFR (CKD-EPI)NonAf (>60 ml/min/1.73 sqM) Glucose (74-99) mg/dL Lactic Ac Sepsis Rflx Y Plasma Lactic Acid Lemuel 3.2 H* (0.7-2.0) mmol/L Calcium (8.4-10.2) mg/dL Total Bilirubin (0.2-1.3) mg/dL AST (17-59) U/L ALT (4-49) U/L Alkaline Phosphatase (38-126) U/L Total Protein (6.3-8.2) g/dL Albumin (3.5-5.0) g/dL Amylase (30-110) U/L Lipase (23-300) U/L Urine Color Yellow Urine Appearance Clear (Clear) Urine pH 7.5 (5.0-8.0) Ur Specific [place] 1.027 (1.001-1.035) Urine Protein Trace H (Negative) Urine Glucose (UA) Negative (Negative) Urine Ketones Negative (Negative) Urine Blood Negative (Negative) Urine Nitrite Negative (Negative) Urine Bilirubin Negative (Negative) Urine Urobilinogen 2.0 (<2.0) mg/dL Ur Leukocyte Esterase Negative (Negative) Serum Alcohol mg/dL 08/02/24 Range/Units 00:19 WBC (3.8-10.6) k/uL RBC (4.30-5.90) m/uL Hgb (13.0-17.5) gm/dL Hct (39.0-53.0) % MCV (80.0-100.0) fL MCH (25.0-35.0) pg MCHC (31.0-37.0) g/dL RDW (11.5-15.5) % Plt Count (150-450) k/uL MPV Neutrophils % % Lymphocytes % % Monocytes % % Eosinophils % % Basophils % % Neutrophils # (1.3-7.7) k/uL Lymphocytes # (1.0-4.8) k/uL Monocytes # (0-1.0) k/uL Eosinophils # (0-0.7) k/uL Basophils # (0-0.2) k/uL Sodium (137-145) mmol/L Potassium (3.5-5.1) mmol/L Chloride (98-107) mmol/L Carbon Dioxide (22-30) mmol/L Anion Gap mmol/L BUN (9-20) mg/dL Creatinine (0.66-1.25) mg/dL Est GFR (CKD-EPI)AfAm (>60 ml/min/1.73 sqM) Est GFR (CKD-EPI)NonAf (>60 ml/min/1.73 sqM) Glucose (74-99) mg/dL Lactic Ac Sepsis Rflx Y Plasma Lactic Acid Lemuel (0.7-2.0) mmol/L Calcium (8.4-10.2) mg/dL Total Bilirubin (0.2-1.3) mg/dL AST (17-59) U/L ALT (4-49) U/L Alkaline Phosphatase (38-126) U/L Total Protein (6.3-8.2) g/dL Albumin (3.5-5.0) g/dL Amylase (30-110) U/L Lipase (23-300) U/L Urine Color Urine Appearance (Clear) Urine pH (5.0-8.0) Ur Specific [place] (1.001-1.035) Urine Protein (Negative) Urine Glucose (UA) (Negative) Urine Ketones (Negative) Urine Blood (Negative) Urine Nitrite (Negative) Urine Bilirubin (Negative) Urine Urobilinogen (<2.0) mg/dL Ur Leukocyte Esterase (Negative) Serum Alcohol mg/dL Disposition <Jaylyn Guerrero - Last Filed: 08/01/24 20:35> Is patient prescribed a controlled substance at d/c from ED?: No <Danica Nelson - Last Filed: 08/05/24 14:31> Clinical Impression: Gastritis Disposition: HOME SELF-CARE Condition: Stable Instructions (If sedation given, give patient instructions): Acute Abdominal Pain (ED) Additional Instructions: Every disease is a spectrum and a small chance still exists that a serious condition could develop, for this reason, please monitor yourself closely for new, changing or worsening symptoms, symptoms that persist beyond 48 hours, vomiting blood, blood in your stool, chest pain or difficulty in breathing fever, inability to tolerate/keep down fluids or your medications, inability to follow up with outpatient providers as instructed and should you experience these symptoms or should you have any further concerns for your wellbeing please return to the ED or call 911 immediately. Please take 20 mg of omeprazole nightly for the next 14 days. Please follow-up with your primary care provider within the next 24 to 48 hours regarding today's visit and regarding continuing this medication. Please avoid hot, spicy, and caffeinated foods. PLEASE call your primary care physician as soon as possible to arrange / discuss plan for followup appointment. Appointment in the next 1-3 days is strongly encouraged if possible. PLEASE let us know here before you leave if there is anything further we can do to be of any assistance. Take care and feel Better! Referrals: None,Stated [Primary Care Provider] - 1-2 days
[2024-08-01 21:19] LABS: Appearance,Urine Clear (Clear); Bilirubin,Urine Negative (Negative); Blood,Urine Negative (Negative); Color,Urine Yellow; Glucose,Urine (UA) Negative (Negative); Ketones,Urine Negative (Negative); Leukocyte Esterase,Urine Negative (Negative); Nitrite,Urine Negative (Negative); PH, Urine 7.5 (5.0-8.0); Protein,Urine Trace (Negative); Specific Gravity,Urine 1.027 (1.001-1.035)
[2024-08-01 21:21] LABS: ALT 46 U/L (4-49); AST 55 U/L (17-59); African American GFR (CKD) >90 (>60 ml/min/1.73 sqM); Albumin 5.1 g/dL (3.5-5.0); Alcohol 77 mg/dL; Alkaline Phosphatase 102 U/L (38-126); Amylase 66 U/L (30-110); Anion Gap 15 mmol/L; Blood Urea Nitrogen 6 mg/dL (9-20); Calcium 9.2 mg/dL (8.4-10.2); Carbon Dioxide 24 mmol/L (22-30); Chloride 101 mmol/L (98-107); Glucose 139 mg/dL (74-99); Non-African American GFR(CKD) >90 (>60 ml/min/1.73 sqM); Potassium 3.8 mmol/L (3.5-5.1); Sodium 140 mmol/L (137-145); Total Bilirubin 1.6 mg/dL (0.2-1.3); Total Protein 8.4 g/dL (6.3-8.2)
[2024-08-01 21:30] LABS: Lipase 186 U/L (23-300)
[2024-08-01 21:46] LABS: Basophils # (A) 0.1 k/uL (0-0.2); Basophils % (A) 1 %; Eosinophils % (A) 0 %; HCT 53.1 % (39.0-53.0); HGB 17.3 gm/dL (13.0-17.5); Lymphocytes % (A) 42 %; MCH 29.7 pg (25.0-35.0); MCHC 32.6 g/dL (31.0-37.0); MCV 91.1 fL (80.0-100.0); Mean Platelet Volume 7.2; Monocytes # (A) 0.3 k/uL (0-1.0); Monocytes % (A) 5 %; Neutrophils # (A) 3.5 k/uL (1.3-7.7); Neutrophils % (A) 50 %; Platelet Count 263 k/uL (150-450); RBC 5.83 m/uL (4.30-5.90); RDW 12.9 % (11.5-15.5)
--- NOTE | 2024-08-02 00:04 | CT ---
EXAMINATION TYPE: CT abdomen pelvis w con CT DLP: generalized abdominal pain that started a few days ago, periumbilical area, pt denies any oth er complaints. h/o alcoholism mGycm, Automated exposure control for dose reduction was used. DATE OF EXAM: 08/01/2024 11:57 PM COMPARISON: No direct comparisons. CLINICAL INDICATION:Male, 43 years old with history of periumbilical pain, hx alcoholism; 1081.8 TECHNIQUE: Standard CT of the abdomen and pelvis following the administration of 100 cc of Isovue 3 00 IV contrast material. Coronal and sagittal reformats were performed. FINDINGS: LOWER CHEST: Unremarkable ABDOMEN LIVER: Diffusely hypoattenuating parenchyma. Enlarged measuring 21.3 cm in CC dimension. No focal les ion. Noncirrhotic morphology. Portal venous system is patent. GALLBLADDER AND BILE DUCTS: Mildly distended gallbladder without surrounding inflammatory changes. No biliary duct dilatation. PANCREAS: Unremarkable. SPLEEN: Unremarkable. ADRENAL GLANDS: Unremarkable. KIDNEYS AND URETERS: No evidence of hydronephrosis or renal calculus. The kidneys enhance symmetrical ly. Contrast is demonstrated within both collecting systems and proximal ureters on the delayed phase . PELVIS BLADDER: Unremarkable REPRODUCTIVE: Unremarkable. ABDOMEN & PELVIS STOMACH AND BOWEL: Stomach and duodenum are unremarkable. The appendix is within normal limits. No fo tyrone bowel wall thickening or surrounding inflammatory changes. No evidence of bowel obstruction. PERITONEUM: No evidence of pneumoperitoneum or free fluid. VASCULATURE: No evidence of aortic aneurysm. MUSCULOSKELETAL: No acute osseous abnormalities. Mild multilevel degenerative disc disease and anteri or osteophytosis of the visualized thoracolumbar spine. LYMPH NODES: No evidence for lymphadenopathy. SOFT TISSUE/ABDOMINAL WALL: Tiny fat filled umbilical hernia. IMPRESSION: 1. No CT evidence for acute abdominopelvic process. 2. Hepatomegaly with diffuse fatty infiltration. Noncirrhotic morphology. [facility], , 08/02/2024 12:01 AM
[2024-08-02] MEDS: ONDANSETRON 4 MG/2 ML VIAL IVP STA (00:29)
[2024-08-02] MEDS: KETOROLAC 15 MG/ML 1 ML VIAL IVP STA (00:33)
[2024-08-02] MEDS: FAMOTIDINE 20 MG/2 ML VIAL IV STA (00:34)
[2024-08-02] MEDS: SODIUM CHLORIDE 0.9% 1,000 ML IV ONE (00:44)
[2024-08-02 01:16] VITALS: BP 155/97; PULSE 88; RESP 18; TEMP 98
== END 2024-08-02 01:19 | disposition home or self-care (01) ==
LOC: EC 19:25
DX: K29.70 Gastritis, unspecified, without bleeding (principal); F10.20 Alcohol dependence, uncomplicated; Y90.3 Blood alcohol level of 60-79 mg/100 ml
CPT/HCPCS: 36415 ×2; 80053; 82150; 83605; 83690; 85025; 81003; 80320; 74177; 99285; 96374; 96375 ×2; 96361; J2405; J3490; J1885; Q9967